=== PATIENT | male | born 1935 | race Caucasian/White ===

== ENCOUNTER 2018-12-28 10:05 | Inpatient (IN) | payer MEDICARE ==
[~2018-12-28] VITALS: Ht 190.5 cm; Wt 106.8 kg
[2018-12-28] MEDS ORDERED: DELZICOL400 M1 PO (10:14)
[2018-12-28] MEDS ORDERED: NEURONTIN 300300 MG PO (10:15)
[2018-12-28] MEDS ORDERED: NEXIUM20 MG PO (10:15)
--- NOTE | 2018-12-28 10:37 | NUR ---
PT WITH N/V X2 COPIUS YELLOW/GREEN
[2018-12-28 10:59] LABS: CALC OSMOLALITY 283 mosm/kg (275-300); CALCIUM 9.2 mg/dL (8.5-10.1); CARBON DIOXIDE 25.3 mmol/L (21.0-32.0); CHLORIDE - SERUM 104 mmol/L (98-107); CREATININE - SERUM 1.2 mg/dL (0.6-1.3); GLUCOSE 195 mg/dL (74-106); POTASSIUM - SERUM 4.7 mmol/L (3.5-5.1); SODIUM 139 mmol/L (136-145); UREA NITROGEN 16 mg/dL (7-18); eGFR NON AFRICAN AMERICAN 61 mL/min (90-120)
[2018-12-28 11:08] LABS: BASOPHILS 0.4 % (0-2); HEMATOCRIT 46.9 % (42.0-54.0); HEMOGLOBIN 15.5 g/dL (13.5-17.5); IMMATURE GRANULOCYTES 0.6 % (0-5); LYMPHOCYTES 24.2 % (15-50); MCH 32.1 pg (26.0-34.0); MCV 97.1 fL (80.0-100.0); MONOCYTES 8.2 % (2-11); NEUTROPHILS 65.6 % (40-80); PLATELET COUNT 246 10x3/uL (130-400); RBC 4.83 10x6/uL (4.20-6.10); RDW 13.3 % (11.5-14.5); WBC 12.5 10x3/uL (4.8-10.8)
[2018-12-28 11:09] LABS: ALBUMIN 3.2 g/dL (3.4-5.0); ALKALINE PHOSPHATASE 59 U/L (46-116); ALT (SGPT) 42 U/L (10-68); AMYLASE - SERUM 51 U/L (25-115); BILIRUBIN - TOTAL 0.56 mg/dL (0.2-1.3); LIPASE 85 U/L (73-393); PROTEIN - SERUM 7.4 g/dL (6.4-8.2); TROPONIN-I < 0.017 ng/mL (0.000-0.060)
[2018-12-28 12:09] VITALS: BP 148/69
--- NOTE | 2018-12-28 14:10 | NUR ---
URINE SENT TO THE LAB
[2018-12-28 14:45] LABS: APPEARANCE CLEAR (CLEAR); COLOR YELLOW (YELLOW)
[2018-12-28 14:46] LABS: BILIRUBIN NEGATIVE (NEGATIVE); KETONE SMALL mg/dL (NEGATIVE); NITRITE NEGATIVE (NEGATIVE); PROTEIN NEGATIVE (NEGATIVE); UROBILINOGEN NORMAL (NORMAL)
[2018-12-28 14:47] LABS: RED CELLS - URINE 0-5 /hpf (0-5); WHITE CELLS - URINE OCC /hpf (NEGATIVE)
[2018-12-28 14:49] LABS: GLUCOSE 50 mg/dL (NEGATIVE)
[2018-12-28 15:54] VITALS: BP 168/88; BMI 29.4
--- NOTE | 2018-12-28 15:59 | NUR ---
PATIENT ADMITTED FROM ER WITH DIAGNOSIS OF KIDNEY STONE RIGHT URETER. PATIENT IS ALERT AND ORIENTED, DENIES PAIN AT THIS TIME. ORIENTED TO ROOM, SR UPX2, CL IN REACH
--- NOTE | 2018-12-28 16:08 | MORECARE ---
CASE MANAGEMENT DISCHARGE SUMMARY PATIENT: ALLIE COUGHLIN UNIT: [id number] ADM DATE: 12/28/18 AGE: 83 : 34 SEX: M ROOM/BED: D.2207 AUTHOR: CLAIR BAZAN PHYSICIAN: REFERRING PHYSICIAN: MARY SANCHEZ DO DATE OF SERVICE: 12/28/18 Discharge Plan Patient Name: ALLIE COUGHLIN [facility] [facility] 1935 Planned Disposition: Home Anticipated Discharge Date: 12/30/18 Discharge Date: Expected LOS: 2 Initial Reviewer: [email or web address] Initial Review Date: 12/28/2018 Generated: 12/28/18 5:07 pm DCPIA - Discharge Planning Initial Assessment Updated by [email or web address]: Rayna Kramer on 12/28/18 4:07 pm * Is the patient Alert and Oriented? Yes * How many steps to enter\exit or inside your home? * PCP Dr. Kevin Godinez * Pharmacy [facility] * Preadmission Environment Home Alone * ADLs Independent * Equipment None * List name and contact numbers for known caregivers / representatives who currently or will assist patient after discharge: Hector Cheungvivien - friend - cant remember his number. * Verbal permission to speak to the caregivers and representatives has been obtained from the patient. Yes * Community resources currently utilized None * Additional services required to return to the preadmission environment? No * Can the patient safely return to the preadmission environment? Yes * Has this patient been hospitalized within the prior 30 days at any hospital? No Patient Name: ALLIE COUGHLIN Page [phone] at 1608 All edits/amendments must be made on the electronic document DICTATION DATE: 12/28/18 160 CRM CAMPAIGN MANAGER: RADHA 12/28/18 160 RPT#: [id number] DC DATE: STATUS: ADM IN [facility] [address] [place] [address] END OF REPORT
--- NOTE | 2018-12-28 16:18 | MORECARE ---
CASE MANAGEMENT DISCHARGE SUMMARY PATIENT: ALLIE COUGHLIN UNIT: [id number] ADM DATE: 12/28/18 AGE: 83 : 34 SEX: M ROOM/BED: D.2207 AUTHOR: CLAIR BAZAN PHYSICIAN: REFERRING PHYSICIAN: MARY SANCHEZ DO DATE OF SERVICE: 12/28/18 Discharge Plan Patient Name: ALLIE COUGHLIN Facility: [facility]:[place] : 1935 Planned Disposition: Home Anticipated Discharge Date: 12/30/18 Discharge Date: Expected LOS: 2 Initial Reviewer: [email or web address] Initial Review Date: 12/28/2018 Generated: 12/28/18 5:17 pm DCP- Discharge Planning Updated by [email or web address]: Rayna Kramer on 12/28/18 3:[address] DC PLAN: Return home alone. ANTICIPATED DC NEEDS: Denied known dc needs. CM met with patient to complete initial dc planning assessment. CM educated patient on the CM role and verbal consent given by patient to complete assessment. CM verified patient's address, phone number, and emergency contact phone numbers. Patient lives at home alone and reports he is independent in his care. At discharge patient plans to return home alone and feels this is a safe discharge. CM discussed availability of home health, rehab services, and medical equipment. Patient denied known discharge needs at this time. Transportation provider at discharge will be a lita or Hector if he can find his number . CM will continue to follow and will assist as needed with dc plans/needs. Rayna Kramer RN, [facility] DCPIA - Discharge Planning Initial Assessment Updated by [email or web address]: Rayna Kramer on 12/28/18 4:07 pm * Is the patient Alert and Oriented? Yes * How many steps to enter\exit or inside your home? * PCP Dr. Kevin Godinez * Pharmacy [facility] * Preadmission Environment Home Alone * ADLs Independent * Equipment None * List name and contact numbers for known caregivers / representatives who currently or will assist patient after discharge: Hector Murphy - friend - cant remember his number. * Verbal permission to speak to the caregivers and representatives has been obtained from the patient. Yes * Community resources currently utilized None * Additional services required to return to the preadmission environment? No * Can the patient safely return to the preadmission environment? Yes * Has this patient been hospitalized within the prior 30 days at any hospital? No Last DP export: 12/28/18 3:08 Patient Name: ALLIE COUGHLIN Page 80776 at 1618 All edits/amendments must be made on the electronic document DICTATION DATE: 12/28/181616 METAL ROOM DENTAL TECHNICIAN: RADHA 12/28/181616 RPT#: [id number] DC DATE: STATUS: ADM IN [facility] [address] [place] [address] END OF REPORT
[2018-12-28 17:38] VITALS: Ht 190.5 cm; Wt 106.8 kg
[2018-12-28 22:13] VITALS: BP 158/75
[2018-12-29] VITALS (13 sets, daily range): BP systolic 136–176; BP diastolic 60–125
--- NOTE | 2018-12-29 02:33 | NUR ---
Patient is alrt and orented able to voice needs and wants to staff. IV to left AC that is saline lock with no redness noted at site armaan pain at site. Side rails up x 2. on room air. NPO at midnight for cystoscopy and right ureteral stent insertion in am. c/o abdomen pain and tenderness and nausea that was treared with zofran and toradal. CAll light in reach bed low checked often for needs and safety.
[2018-12-29 06:59] LABS: BASOPHILS 0.1 % (0-2); EOSINOPHILS 0.6 % (0-7); HEMATOCRIT 47.7 % (42.0-54.0); HEMOGLOBIN 15.5 g/dL (13.5-17.5); IMMATURE GRANULOCYTES 0.5 % (0-5); LYMPHOCYTES 14.4 % (15-50); MCH 31.8 pg (26.0-34.0); MCHC 32.5 g/dL (31.0-37.0); MCV 97.9 fL (80.0-100.0); MEAN PLATELET VOLUME 11.3 fL (7.4-10.4); MONOCYTES 10.4 % (2-11); PLATELET COUNT 243 10x3/uL (130-400); RBC 4.87 10x6/uL (4.20-6.10); RDW 13.5 % (11.5-14.5); WBC 13.9 10x3/uL (4.8-10.8)
[2018-12-29 07:21] LABS: ALBUMIN 3.1 g/dL (3.4-5.0); ANION GAP 11.9 mmol/L (8-16); BILIRUBIN - TOTAL 0.67 mg/dL (0.2-1.3); CALCIUM 8.9 mg/dL (8.5-10.1); CARBON DIOXIDE 27.5 mmol/L (21.0-32.0); POTASSIUM - SERUM 4.4 mmol/L (3.5-5.1); PROTEIN - SERUM 7.4 g/dL (6.4-8.2)
[2018-12-29 07:23] LABS: CREATININE - SERUM 1.7 mg/dL (0.6-1.3)
--- NOTE | 2018-12-29 08:41 | NUR ---
PATIENT CO EMESIS. DARK BROWN. CHANGED GOWN AND PILLOW CASE. PROVIDED ZOFRAN AND PAIN MEDICATION. WILL NOTIFY HIM WHEN I KNOW HIS SURGERY WILL BE. CL IN REACH. KIMTM
[2018-12-30 02:26] VITALS: BP 136/70
--- NOTE | 2018-12-30 03:32 | NUR ---
PATIENT IN BED RESTING WITH NO NOTED NEEDS. ALERT AND ORENTED ABLE TO VOICE NEEDS AND WANTS TO STAFF. CALL LIGHT IN REACH. NO DISTRESS.
[2018-12-30 05:51] VITALS: BP 150/70
[2018-12-30 06:49] LABS: BASOPHILS 0.3 % (0-2); EOSINOPHILS 1.3 % (0-7); HEMATOCRIT 43.8 % (42.0-54.0); HEMOGLOBIN 14.1 g/dL (13.5-17.5); IMMATURE GRANULOCYTES 0.3 % (0-5); LYMPHOCYTES 17.5 % (15-50); MCH 31.6 pg (26.0-34.0); MCHC 32.2 g/dL (31.0-37.0); MCV 98.2 fL (80.0-100.0); MEAN PLATELET VOLUME 11.1 fL (7.4-10.4); MONOCYTES 11.1 % (2-11); NEUTROPHILS 69.5 % (40-80); PLATELET COUNT 214 10x3/uL (130-400); RBC 4.46 10x6/uL (4.20-6.10); RDW 13.6 % (11.5-14.5)
[2018-12-30 07:36] LABS: ALBUMIN 2.8 g/dL (3.4-5.0); ANION GAP 14.4 mmol/L (8-16); BILIRUBIN - TOTAL 0.76 mg/dL (0.2-1.3); CALCIUM 8.3 mg/dL (8.5-10.1); POTASSIUM - SERUM 4.4 mmol/L (3.5-5.1); PROTEIN - SERUM 6.5 g/dL (6.4-8.2)
[2018-12-30 07:50] LABS: CREATININE - SERUM 1.2 mg/dL (0.6-1.3)
--- NOTE | 2018-12-30 08:15 | NUR ---
PT SITTING UP IN BED EATING BREAKFAST. RESP EVEN AND UNLABORED. PT DENIES PAIN AT THIS TIME. SALINE LOC TO LEFT AC SITE WITHOUT REDNESS OR EDEMA. PT DENIES FURTHER NEEDS. CL WITHIN REACH. ENCOURAGED TO CALL WITH NEEDS. CONTINUE POC
[2018-12-30 08:45] VITALS: BP 132/63
[2018-12-30 12:16] VITALS: BP 156/80
[2018-12-30 16:44] VITALS: BP 162/70
[2018-12-30 19:00] VITALS: BP 154/69
[2018-12-31] VITALS: BP 150/67
--- NOTE | 2018-12-31 01:56 | NUR ---
REC'D CHGE OF SHIFT WALKING ROUNDS IN SHOWER WILL ASSESS AND CONTINUE TO MONITOR FOR ANY CHGES AND FOLLOW CURRENT PLAN OF CARE.
[2018-12-31 05:00] VITALS: BP 148/61
[2018-12-31 05:56] LABS: BASOPHILS 0.4 % (0-2); EOSINOPHILS 3.1 % (0-7); HEMATOCRIT 43.9 % (42.0-54.0); HEMOGLOBIN 14.3 g/dL (13.5-17.5); IMMATURE GRANULOCYTES 0.4 % (0-5); LYMPHOCYTES 19.6 % (15-50); MCH 32.1 pg (26.0-34.0); MCHC 32.6 g/dL (31.0-37.0); MCV 98.4 fL (80.0-100.0); MEAN PLATELET VOLUME 10.9 fL (7.4-10.4); MONOCYTES 11.5 % (2-11); PLATELET COUNT 218 10x3/uL (130-400); RBC 4.46 10x6/uL (4.20-6.10); RDW 13.5 % (11.5-14.5); WBC 11.5 10x3/uL (4.8-10.8)
[2018-12-31 06:34] LABS: ALBUMIN 2.9 g/dL (3.4-5.0); ANION GAP 12.2 mmol/L (8-16); BILIRUBIN - TOTAL 0.63 mg/dL (0.2-1.3); CALCIUM 8.7 mg/dL (8.5-10.1); CARBON DIOXIDE 27.1 mmol/L (21.0-32.0); CREATININE - SERUM 1.2 mg/dL (0.6-1.3); POTASSIUM - SERUM 4.3 mmol/L (3.5-5.1); PROTEIN - SERUM 7.1 g/dL (6.4-8.2)
--- NOTE | 2018-12-31 07:36 | NUR ---
I have reviewed this patient and I concur with the Shift Assessment completed by the Licensed Practical Nurse today this shift.
--- NOTE | 2018-12-31 07:55 | NUR ---
AWAKE AND ALERT. ORIENTED X3. NO C/O AT THIS TIME. LUNGS ARE CLEAR BILATERALLY, NO COUGH NOTED. SKIN IS INTACT WTIHOUT REDNESS. SL TO LEFT AC AREA IS PATENT WTIHOUT REDNESS AT INSERTION SITE. DENIES NEEDS.
[2018-12-31 08:56] VITALS: BP 138/76
--- NOTE | 2018-12-31 10:06 | MORECARE ---
CASE MANAGEMENT DISCHARGE SUMMARY PATIENT: ALLIE COUGHLIN UNIT: [id number] ADM DATE: 12/28/18 AGE: 83 : 34 SEX: M ROOM/BED: D.2207 AUTHOR: CLAIR BAZAN PHYSICIAN: REFERRING PHYSICIAN: MARY SANCHEZ DO DATE OF SERVICE: 12/31/18 Discharge Plan Patient Name: ALLIE COUGHLIN Facility: [facility]:[place] : 1935 Planned Disposition: Home Anticipated Discharge Date: 12/30/18 Discharge Date: Expected LOS: 2 Initial Reviewer: [email or web address] Initial Review Date: 12/28/2018 Generated: 12/31/18 11:06 am Comments DCP- Discharge Planning Updated by [email or web address]: Aida Adams on 12/31/18 9:[address] SPOKE WITH PATIENT ABOUT DC PLANNING, STATES HE IS INDEPENDNET WITH HIS CARE, IMM SERVED AND WILL NEED A TAXI TO GO HOME. CM TO FOLLOW AND ASSIST NEEDED DCP- Discharge Planning Updated by [email or web address]: Rayna Kramer on 12/28/18 3:[address] DC PLAN: Return home alone. ANTICIPATED DC NEEDS: Denied known dc needs. CM met with patient to complete initial dc planning assessment. CM educated patient on the CM role and verbal consent given by patient to complete assessment. CM verified patient's address, phone number, and emergency contact phone numbers. Patient lives at home alone and reports he is independent in his care. At discharge patient plans to return home alone and feels this is a safe discharge. CM discussed availability of home health, rehab services, and medical equipment. Patient denied known discharge needs at this time. Transportation provider at discharge will be a cab or Hector if he can find his number . CM will continue to follow and will assist as needed with dc plans/needs. Rayna Kramer RN, [facility] DCPIA - Discharge Planning Initial Assessment Updated by [email or web address]: Rayna Kramer on 12/28/18 4:07 pm * Is the patient Alert and Oriented? Yes * How many steps to enter\exit or inside your home? * PCP Dr. Kevin Godinez * Pharmacy [facility] * Preadmission Environment Home Alone * ADLs Independent * Equipment None * List name and contact numbers for known caregivers / representatives who currently or will assist patient after discharge: Hector Alvaradopako - friend - bassam remember his number. * Verbal permission to speak to the caregivers and representatives has been obtained from the patient. Yes * Community resources currently utilized None * Additional services required to return to the preadmission environment? No * Can the patient safely return to the preadmission environment? Yes * Has this patient been hospitalized within the prior 30 days at any hospital? No Coverage Notice Reviewer: [email or web address] Shivam Adams Notice Issued Date-Time: 12/31/2018 9:50 Notice Type: IM Discharge Notice Notice Delivered To: Patient Relationship to Patient: Starter Mechanic Name: Delivery Method: HAND - Hand Delivered Anaid Days: Prior Verbal Notification: Recipient Understood Notice: Yes Recipient Signature: Yes Med Rec Note Co-signed by Attending: Coverage Notice Comment: Last DP export: 12/28/18 3:18 Patient Name: ALLIE COUGHLIN Page 22196 at 1006 All edits/amendments must be made on the electronic document DICTATION DATE: 12/31/18 1006 GIS COORDINATOR: RADHA 12/31/18 1006 RPT#: [id number] DC DATE: STATUS: ADM IN [facility] [address] [place] [address] END OF REPORT
--- NOTE | 2018-12-31 11:15 | NUR ---
REQUESTED AND GIVEN ONE HYDDROCODONE PO FOR C/O LEG PAIN LEVEL 8. WILL MONITOR.
--- NOTE | 2018-12-31 12:29 | NUR ---
OFF UNIT VIA BED FOR PROCEDURE.
[2018-12-31 13:46] VITALS: BP 147/85
--- NOTE | 2018-12-31 14:40 | NUR ---
RETURNED FROM PROCEDURE. A/O X3. DENIES NEEDS.
[2018-12-31 16:28] VITALS: BP 142/73
--- NOTE | 2018-12-31 17:10 | NUR ---
UP TO BR WITH SBA. VOIDED BLOOD TINGED URINE WITHOUT DIFFICULTY. DENIES NEEDS.
--- NOTE | 2018-12-31 18:40 | NUR ---
ATE ALMOST ALL OF SUPPER. UP TO BR PER SELF AND VOIDED BLOOD TINGED URINE WITHOUT DIFFICULTY. DENIES NEEDS. NO CHAGES NOTED.
[2018-12-31 19:00] VITALS: BP 138/63
[2019-01-01] VITALS: BP 136/72
[2019-01-01 04:00] VITALS: BP 114/59
[2019-01-01 06:56] LABS: BASOPHILS 0.4 % (0-2); HEMATOCRIT 44.3 % (42.0-54.0); HEMOGLOBIN 14.2 g/dL (13.5-17.5); IMMATURE GRANULOCYTES 0.5 % (0-5); LYMPHOCYTES 19.5 % (15-50); MCH 31.7 pg (26.0-34.0); MCHC 32.1 g/dL (31.0-37.0); MCV 98.9 fL (80.0-100.0); MEAN PLATELET VOLUME 11.1 fL (7.4-10.4); MONOCYTES 10.7 % (2-11); NEUTROPHILS 64.9 % (40-80); PLATELET COUNT 245 10x3/uL (130-400); RBC 4.48 10x6/uL (4.20-6.10); RDW 13.6 % (11.5-14.5); WBC 11.1 10x3/uL (4.8-10.8)
[2019-01-01 07:10] LABS: ALBUMIN 2.8 g/dL (3.4-5.0); ANION GAP 12.9 mmol/L (8-16); BILIRUBIN - TOTAL 0.66 mg/dL (0.2-1.3); CARBON DIOXIDE 26.4 mmol/L (21.0-32.0); CREATININE - SERUM 1.4 mg/dL (0.6-1.3); POTASSIUM - SERUM 4.3 mmol/L (3.5-5.1); PROTEIN - SERUM 6.5 g/dL (6.4-8.2)
--- NOTE | 2019-01-01 07:59 | NUR ---
AWAKE AND ALERT. ORIENTED X3. NO C/O THIS AM. LUNGS ARE CLEAR BILATERALLY, NO COUGH NOTED. SKIN IS INTACT WTIHOUT REDNESS. SL TO LEFT AC IS PATENT WITHOUT REDNESS AT INSERTION SITE. DENIES NEEDS. REPORTS NO PROBLEMS WITH URINATION.
[2019-01-01 08:12] VITALS: BP 137/67
[2019-01-01] MEDS ORDERED: FLOMAX0.4 MG PO (11:00)
--- NOTE | 2019-01-01 11:00 | NUR ---
SPOKE WITH PATIENTS FRIEND TO COME FOR A RIDE. HE SAID HE WOULD COME AND GET HIM. PATIENT HAPPY WITH THIS.
--- NOTE | 2019-01-01 11:27 | MORECARE ---
CASE MANAGEMENT DISCHARGE SUMMARY PATIENT: ALLIE COUGHLIN UNIT: [id number] ADM DATE: 12/28/18 AGE: 83 : 34 SEX: M ROOM/BED: D.2207 AUTHOR: CLAIR BAZAN PHYSICIAN: REFERRING PHYSICIAN: MARY SANCHEZ DO DATE OF SERVICE: 01/01/19 Discharge Plan Patient Name: ALLIE COUGHLIN Facility: [facility]:[place] : 1935 Planned Disposition: Home Anticipated Discharge Date: 12/30/18 Discharge Date: Expected LOS: 2 Initial Reviewer: [email or web address] Initial Review Date: 12/28/2018 Generated: 01/01/19 12:27 pm Comments DCP- Discharge Planning Updated by [email or web address]: Aida Adams on 01/01/19 10:[address] patient is discharging home today, a friend will transport him, so he no longer needs a taxi. CM to follow as needed DCP- Discharge Planning Updated by [email or web address]: Aida Adams on 12/31/18 9:[address] SPOKE WITH PATIENT ABOUT DC PLANNING, STATES HE IS INDEPENDNET WITH HIS CARE, IMM SERVED AND WILL NEED A TAXI TO GO HOME. CM TO FOLLOW AND ASSIST NEEDED DCP- Discharge Planning Updated by [email or web address]: Rayna Kramer on 12/28/18 3:[address] DC PLAN: Return home alone. ANTICIPATED DC NEEDS: Denied known dc needs. CM met with patient to complete initial dc planning assessment. CM educated patient on the CM role and verbal consent given by patient to complete assessment. CM verified patient's address, phone number, and emergency contact phone numbers. Patient lives at home alone and reports he is independent in his care. At discharge patient plans to return home alone and feels this is a safe discharge. CM discussed availability of home health, rehab services, and medical equipment. Patient denied known discharge needs at this time. Transportation provider at discharge will be a cab or Hector if he can find his number . CM will continue to follow and will assist as needed with dc plans/needs. Rayna Kramer RN, [facility] DCPIA - Discharge Planning Initial Assessment Updated by [email or web address]: Rayna Kramer on 12/28/18 4:07 pm * Is the patient Alert and Oriented? Yes * How many steps to enter\exit or inside your home? * PCP Dr. Kevin Godinez * Pharmacy [facility] * Preadmission Environment Home Alone * ADLs Independent * Equipment None * List name and contact numbers for known caregivers / representatives who currently or will assist patient after discharge: Hector Murphy - friend - cant remember his number. * Verbal permission to speak to the caregivers and representatives has been obtained from the patient. Yes * Community resources currently utilized None * Additional services required to return to the preadmission environment? No * Can the patient safely return to the preadmission environment? Yes * Has this patient been hospitalized within the prior 30 days at any hospital? No Coverage Notice Reviewer: [email or web address] Shivam Adams Notice Issued Date-Time: 12/31/2018 9:50 Notice Type: IM Discharge Notice Notice Delivered To: Patient Relationship to Patient: Sports Doctor Name: Delivery Method: HAND - Hand Delivered Anaid Days: Prior Verbal Notification: Recipient Understood Notice: Yes Recipient Signature: Yes Med Rec Note Co-signed by Attending: Coverage Notice Comment: Last DP export: 12/31/18 9:06 Patient Name: ALLIE COUGHLIN Page [phone] at 1127 All edits/amendments must be made on the electronic document DICTATION DATE: 01/01/191126 SALES OPERATIONS ANALYST: RADHA 01/01/191126 RPT#: [id number] DC DATE: STATUS: ADM IN [facility] [address] [place] [address] END OF REPORT
--- NOTE | 2019-01-01 12:00 | NUR ---
DISCHARGED TO HOME WITH FRIEND AMBULATORY. DISCHARGE INSTRUCTIONS GIVEN BOTH VERBALLY AND WRITTEN. ALL QUESTIONS ANSWERED. PATIENT VERBALIZED UNDERSTANDING OF SAME. NEEDED PRESCRIPTIONS GIVEN TO PATIENT. SL TO LEFT AC D/C WITH CATHETER INTACT. ALL BELONGINGS WITH PATIENT.
--- NOTE | 2019-01-01 15:24 | MORECARE ---
CASE MANAGEMENT DISCHARGE SUMMARY PATIENT: ALLIE COUGHLIN UNIT: [id number] ADM DATE: 12/28/18 AGE: 83 : 34 SEX: M ROOM/BED: D.2207 AUTHOR: CLAIR BAZAN PHYSICIAN: REFERRING PHYSICIAN: MARY SANCHEZ DO DATE OF SERVICE: 01/01/19 Discharge Plan Patient Name: ALLIE COUGHLIN Facility: [facility]:[place] : 1935 Planned Disposition: Home Anticipated Discharge Date: 12/30/18 Discharge Date: 01/01/2019 Expected LOS: 2 Initial Reviewer: [email or web address] Initial Review Date: 12/28/2018 Generated: 01/01/19 4:24 pm Comments DCP- Discharge Planning Updated by [email or web address]: Aida Adams on 01/01/19 10:[address] patient is discharging home today, a friend will transport him, so he no longer needs a taxi. CM to follow as needed DCP- Discharge Planning Updated by [email or web address]: Aida Adams on 12/31/18 9:[address] SPOKE WITH PATIENT ABOUT DC PLANNING, STATES HE IS INDEPENDNET WITH HIS CARE, IMM SERVED AND WILL NEED A TAXI TO GO HOME. CM TO FOLLOW AND ASSIST NEEDED DCP- Discharge Planning Updated by [email or web address]: Rayna Kramer on 12/28/18 3:[address] DC PLAN: Return home alone. ANTICIPATED DC NEEDS: Denied known dc needs. CM met with patient to complete initial dc planning assessment. CM educated patient on the CM role and verbal consent given by patient to complete assessment. CM verified patient's address, phone number, and emergency contact phone numbers. Patient lives at home alone and reports he is independent in his care. At discharge patient plans to return home alone and feels this is a safe discharge. CM discussed availability of home health, rehab services, and medical equipment. Patient denied known discharge needs at this time. Transportation provider at discharge will be a cab or Hector if he can find his number . CM will continue to follow and will assist as needed with dc plans/needs. Rayna Kramer RN, [facility] DCPIA - Discharge Planning Initial Assessment Updated by [email or web address]: Rayna Kramer on 12/28/18 4:07 pm * Is the patient Alert and Oriented? Yes * How many steps to enter\exit or inside your home? * PCP Dr. Kevin Godinez * Pharmacy [facility] * Preadmission Environment Home Alone * ADLs Independent * Equipment None * List name and contact numbers for known caregivers / representatives who currently or will assist patient after discharge: Hector Murphy - friend - cant remember his number. * Verbal permission to speak to the caregivers and representatives has been obtained from the patient. Yes * Community resources currently utilized None * Additional services required to return to the preadmission environment? No * Can the patient safely return to the preadmission environment? Yes * Has this patient been hospitalized within the prior 30 days at any hospital? No Coverage Notice Reviewer: [email or web address] Shivam Adams Notice Issued Date-Time: 12/31/2018 9:50 Notice Type: IM Discharge Notice Notice Delivered To: Patient Relationship to Patient: Personal Care Home Administrator Name: Delivery Method: HAND - Hand Delivered Anaid Days: Prior Verbal Notification: Recipient Understood Notice: Yes Recipient Signature: Yes Med Rec Note Co-signed by Attending: Coverage Notice Comment: Last DP export: 01/01/19 10:27 a Patient Name: ALLIE COUGHLIN Page 31838 at 1524 All edits/amendments must be made on the electronic document DICTATION DATE: 01/01/191522 PAVER INSTALLER: RADHA 01/01/191522 RPT#: [id number] DC DATE:01/01/19 STATUS: DIS IN [facility] [address] [place] [address] END OF REPORT
--- NOTE | 2019-01-04 08:44 | OP ---
PATIENT NAME: ALLIE COUGHLIN MEDICAL RECORD: [id number] :[birth year] LOCATION:D.MS [address]7 ADMISSION DATE:12/28/18 SURGEON: RON MCCOLLUM MD DATE OF OPERATION: 12/31/2018 SURGEON: Ron Mccollum MD ANESTHESIA: General anesthesia by Domingo Tavares. DIAGNOSIS: A 7 mm right renal stone. PROCEDURE: Right extracorporeal shock wave lithotripsy (ESWL times 2000 shocks with the maximum power level being 6). FINDINGS: Radiodense renal stone in the right kidney. BLOOD LOSS: None. CLINICAL HISTORY: This is an 83-year-old male, who presented to the Emergency Room with acute right flank pain. He has CT scan showing a 7 mm stone lodged in the right proximal ureter. Two days ago, he had a right ureteral stent inserted. During the stent insertion, the stone was pushed back into the kidney. Today, he comes to have the stone treated with lithotripsy. He was given Ancef welder explosion to the OR. HE IS ALLERGIC TO MORPHINE. DESCRIPTION OF PROCEDURE: The patient was given induction of general anesthesia in supine position. The stone was targeted in 2 planes. Then, 2000 shocks were given to the stone and by then the stone was no longer clearly visible. At this point, we terminated the procedure. The patient will be sent home tomorrow. He does not have a ride home today. He will then see me in followup in 2 weeks' time with a KUB to determine if we can remove the stent. TRANSINT:[id number] Voice Confirmation ID: [id number] DOCUMENT ID: [id number] RON MCCOLLUM MD at 0844 CC: [id number] DICTATION DATE: 12/31/18 1319 JAMB CUTTER: 12/31/18 1353 DIS IN 01/01/19 [id number] [place] [address]
--- NOTE | 2019-01-04 08:44 | OP ---
PATIENT NAME: ALLIE COUGHLIN MEDICAL RECORD: [id number] :[birth year] LOCATION:D.MS [address]7 ADMISSION DATE:12/28/18 SURGEON: RON MCCOLLUM MD DATE OF OPERATION: 12/29/2018 SURGEON: Ron Mccollum MD ANESTHESIA: General anesthesia by Miguel Martin. DIAGNOSIS: Right 7 mm proximal ureteral stone. PROCEDURES: Cystoscopy, right retrograde pyelogram, right ureteral stent insertion 6-Sierra Leonean x 26 cm with string attached. FINDINGS: Obstructive lateral lobes of the prostate. Single ureteral orifices bilaterally. No bladder tumors. Radiodense renal stone. The stone was pushed back into the kidney after the stent insertion. CLINICAL HISTORY: This is an 83-year-old male with a previous history of kidney stones. He came to the ER with acute right flank pain with nausea and vomiting. He continues to be nauseated and he is covered with vomit. CT scan shows a 7 mm stone obstructing the right proximal ureter. No other renal stones are visible. He comes today to have a right ureteral stent inserted. In 2 days' time, he will have a right lithotripsy. HE IS ALLERGIC TO MORPHINE. He was given Ancef control center operator to the OR. DESCRIPTION OF PROCEDURE: The patient was given induction of general anesthesia due to the vomiting risk. He was then placed into the lithotomy position and prepped and draped. A 21-Sierra Leonean cystoscope with 30-degree lens was used for visualization. Findings as outlined above. Initially, it was difficult to identify the stone definitively. Therefore, we did a retrograde pyelogram on the right side. An open-ended ureteral catheter was used to inject diluted contrast. This column of dye was completely stopped at the proximal ureter by the stone. We then inserted a Sensor wire through the lumen of the ureteral catheter. This was stopped at the level of the stone, but it managed to finally pass beside the stone up into the renal pelvis. The ureteral catheter was then removed entirely, leaving the wire behind. Over the wire, we inserted the 6-Sierra Leonean x 26 cm ureteral stent. Once the stent was in correct position, the wire was withdrawn entirely. The distal end of the stent was pushed into the bladder using the pusher. The stone has migrated into the renal pelvis. The stent actually coils around it. The bladder was emptied through the cystoscope and the scope was removed entirely. The string on the distal end of the stent is maintained. It was tied to itself in a knot and cut shorter. The patient was awakened and brought to the recovery room. He will be going back to his hospital room. TRANSINT:[id number] Voice Confirmation ID: [id number] DOCUMENT ID: [id number] OPERATIVE REPORT [id number] ALLIE COUGHLIN, RON Sena MD at 0844 CC: [id number] DICTATION DATE: 12/29/18 1348 SENIOR TAX ACCOUNTANT: 12/29/18 1400 DIS IN 01/01/19 [facility] [address] [place] [address]
== END 2019-01-01 12:00 | disposition home or self-care (01) | DRG 660 ==
LOC: D.ER 10:05 → D.MS 13:57
PROVIDERS: Family Medicine; Urology; ADMIT Family Medicine; ATTEND Family Medicine
PROC: 0T768DZ Dilation of Right Ureter with Intraluminal Device, Via Natural or Artificial Opening Endoscopic (ICD-10-PCS; principal; 2018-12-29 12:00)
PROC: 0TF3XZZ Fragmentation in Right Kidney Pelvis, External Approach (ICD-10-PCS; 2018-12-31)
DX: N13.2 Hydronephrosis with renal and ureteral calculous obstruction (principal); J98.11 Atelectasis; K51.90 Ulcerative colitis, unspecified, without complications; Z87.442 Personal history of urinary calculi; R16.2 Hepatomegaly with splenomegaly, not elsewhere classified; G62.9 Polyneuropathy, unspecified; K44.9 Diaphragmatic hernia without obstruction or gangrene

== ENCOUNTER 2019-01-19 05:58 | Day surgery (SDC) | payer MEDICARE ==
[~2019-01-19] VITALS: Ht 188 cm; Wt 103.9 kg
[~2019-01-19 05:58] MED LIST: DELZICOL400 M1 PO; FLOMAX0.4 MG PO; NEURONTIN 300300 MG PO; NEXIUM20 MG PO
[2019-01-19 06:48] LABS: BASOPHILS 0.6 % (0-2); EOSINOPHILS 7.2 % (0-7); HEMATOCRIT 46.1 % (42.0-54.0); IMMATURE GRANULOCYTES 0.6 % (0-5); LYMPHOCYTES 25.5 % (15-50); MCH 31.9 pg (26.0-34.0); MCHC 32.5 g/dL (31.0-37.0); MCV 98.1 fL (80.0-100.0); MONOCYTES 8.9 % (2-11); NEUTROPHILS 57.2 % (40-80); PLATELET COUNT 262 10x3/uL (130-400); RDW 13.4 % (11.5-14.5); WBC 9.7 10x3/uL (4.8-10.8)
[2019-01-19 06:55] VITALS: Ht 188 cm; Wt 103.9 kg
[2019-01-19 07:01] LABS: CALCIUM 8.9 mg/dL (8.5-10.1); CARBON DIOXIDE 27.3 mmol/L (21.0-32.0); CREATININE - SERUM 1.3 mg/dL (0.6-1.3); POTASSIUM - SERUM 4.3 mmol/L (3.5-5.1)
--- NOTE | 2019-01-19 10:46 | NUR ---
1015 CALL PLACED TO CASE MANAGEMENT. INFORMED PT DROVE HIMSELF TO [facility] & EXPECTS TO STAY OVERNIGHT. INFORMED PT.'S DAUGHTER LIVES IN [facility] & HE STATES HE HAS NO ONE ELSE TO DRIVE HOME. Brett ROSE R.N. 1020 AFTER DISCUSSION WITH NURSE SEARCH ENGINE OPTIMIZATION STRATEGIST, Gissell BARNETT R.N. PT STATES WILL TAKE A TAXI HOME IF [facility] WILL PAY FOR IT & HE WILL PAY FOR TAXI TOMORROW TO COME BACK FOR HIS AUTOMOBILE. BRIANNA, CASE MANAGEMENT NOTIFIED. Brett ROSE R.N.
--- NOTE | 2019-01-19 11:10 | NUR ---
1100 ATE ALL OF FULL LIQUID DIET. DECLINES NEED TO VOIDE @ THIS TIME. INSTRUCTED TO CALL FOR ASSISTANCE FOR THE FIRST TIME AMBULATORY TO BATHROOM. Brett ROSE R.N.
--- NOTE | 2019-01-19 11:24 | OP ---
PATIENT NAME: KARTIK COUGHLIN MEDICAL RECORD: [id number] :34 LOCATION:[facility] ADMISSION DATE: SURGEON: DEWEY MCCOLLUM MD DATE OF OPERATION: 01/19/2019 SURGEON: Dewey Mccollum MD. ANESTHESIA: TIVA by Alex Shell CRNA DIAGNOSIS: Retained right ureteral stent. PROCEDURES: Cystoscopy, right ureteral stent removal. FINDINGS: Obstructive lateral lobes of the prostate. No bladder tumors. SPECIMENS: Right ureteral stent. ESTIMATED BLOOD LOSS: None. CLINICAL HISTORY: This is an 83-year-old male, who had placement of a right ureteral stent and treatment of a stone with lithotripsy. His latest KUB shows that the stone has gone entirely. He comes to have the stent removed. There is a string on the distal end of the stent. However, the string has gone into the penile urethra and it cannot be retrieved. He was given [employer] real [employer] transaction manager to the OR. DESCRIPTION OF PROCEDURE: The patient was given IV sedation. He was placed into lithotomy position and prepped and draped. A 21-Macedonian cystoscope was used for visualization. We got into the bladder. The bladder was very full with urine. I took the lens of the scope sheath to allow the bladder to drain. While doing this, the string from the stent became visible. After emptying the bladder, the string was used to pull the stent out entirely. The scope sheath was removed. The patient was awakened and brought back to the recovery room. TRANSINT:[id number] Voice Confirmation ID: [id number] DOCUMENT ID: [id number] DEWEY MCCOLLUM MD at 1124 CC: [id number] DICTATION DATE: 01/19/19 1016 WORM GROWER: 01/19/19 1104 REG [facility] [address] [id number]
--- NOTE | 2019-01-19 13:28 | NUR ---
1230 RESTING QUIETLY IN BED. UNABLE TO VOID POST PRCEDURE. IV PATENT. Brett ROSE R.N.
--- NOTE | 2019-01-19 14:09 | NUR ---
1345 DRESSED. AWAKE & ALERT. GIVEN DISCHARGE INSTRUCTIONS INCLUDING MED REC, [facility] D/C INSTRUCTIONS, & POST CYSTOSCOPY D/C INSTRUCTIONS. PT VOICED UNDERSTANDING. TO [employer] [facility] PER WHEELCHAIR BY THIS NURSE. TO HOME PER TAXI PAID FOR BY VOUCHER AUTHORIZED BY ELIE ANTONIO R.N./CASE MANAGEMENT. Brett ROSE R.N.
== END 2019-01-19 13:45 | disposition home or self-care (01) ==
LOC: D.OPS 05:58 → D.PAN 11:15 → D.OPS 13:45
PROVIDERS: Anesthesiology; ATTEND Urology
DX: T83.9XXA Unspecified complication of genitourinary prosthetic device, implant and graft, initial encounter (principal)